=== PATIENT | female | born 1995 | race Caucasian/White ===

== ENCOUNTER 2024-01-26 10:56 | Emergency (ER) | payer BC, OTHER ==
[2024-01-26] MEDS ORDERED: Ondansetron ODT 4 MG TAB ONE (11:32)
[2024-01-26] MEDS ORDERED: Dexamethasone 10 MG/ML VIAL ONE (11:32)
== END 2024-01-26 11:41 | disposition home or self-care (01) ==
LOC: BURERS 10:56
DX: I88.9 Nonspecific lymphadenitis, unspecified (principal)
CPT/HCPCS: 99283; J1100; Q0162